=== PATIENT | female | born 1955 | race Caucasian/White ===

== ENCOUNTER → 2018-05-03 16:46 | Outpatient (CLI) | payer BC | END | disposition home or self-care (01) | LOC: D.MAMMO 04-20 15:00 | DX: Z12.31 Encounter for screening mammogram for malignant neoplasm of breast (principal) ==

== ENCOUNTER 2018-06-15 19:00 | Outpatient (CLI) | payer BC | END 2018-06-15 20:00 | disposition home or self-care (01) | LOC: D.MAMMO 19:00 | DX: R92.8 Other abnormal and inconclusive findings on diagnostic imaging of breast (principal) ==

== ENCOUNTER → 2019-06-05 14:00 | Outpatient (CLI) | payer MEDICARE, BC | END | disposition home or self-care (01) | LOC: D.MAMMO 09:00 | PROVIDERS: ATTEND Nurse Practitioner | DX: R92.8 Other abnormal and inconclusive findings on diagnostic imaging of breast (principal) ==

== ENCOUNTER → 2019-06-19 14:59 | Outpatient (CLI) | payer MEDICARE, BC ==
[~2019-06-19 14:59] MED LIST: METOPROLOL TART50 MG PO; VITAMIN D2000 UNIT PO
[2019-08-14 06:13] VITALS: BMI 30.9
== END | disposition home or self-care (01) ==
LOC: D.RAD 14:59
PROVIDERS: ATTEND Nurse Practitioner
DX: M25.562 Pain in left knee (principal)

== ENCOUNTER → 2019-07-09 09:26 | Outpatient (CLI) | payer MEDICARE, BC ==
[2019-08-14 06:13] VITALS: BMI 30.9
== END | disposition home or self-care (01) ==
LOC: D.MRI 09:26
PROVIDERS: ATTEND Orthopaedic Surgery
DX: S82.242A Displaced spiral fracture of shaft of left tibia, initial encounter for closed fracture (principal)

== ENCOUNTER 2019-08-14 05:30 | Day surgery (SDC) | payer MEDICARE, BC ==
[2019-08-09 10:22] LABS: BASOPHILS 0.4 % (0-2); EOSINOPHILS 1.7 % (0-7); HEMATOCRIT 43.7 % (36.0-48.0); HEMOGLOBIN 15.4 g/dL (12-16); IMMATURE GRANULOCYTES 0.1 % (0-5); LYMPHOCYTES 30.8 % (15-50); MCH 33.4 pg (26.0-34.0); MCHC 35.2 g/dL (31.0-37.0); MCV 94.8 fL (80.0-100.0); MONOCYTES 8.8 % (2-11); NEUTROPHILS 58.2 % (40-80); PLATELET COUNT 225 10x3/uL (130-400); RBC 4.61 10x6/uL (4.00-5.40); RDW 12.6 % (11.5-14.5); WBC 8.3 10x3/uL (4.8-10.8)
[2019-08-09 10:31] LABS: CALC OSMOLALITY 283 mosm/kg (275-300); CALCIUM 8.8 mg/dL (8.5-10.1); CARBON DIOXIDE 29.7 mmol/L (21.0-32.0); CHLORIDE - SERUM 107 mmol/L (98-107); CREATININE - SERUM 0.7 mg/dL (0.6-1.3); GLUCOSE 102 mg/dL (74-106); POTASSIUM - SERUM 4.2 mmol/L (3.5-5.1); SODIUM 143 mmol/L (136-145); UREA NITROGEN 11 mg/dL (7-18); eGFR NON AFRICAN AMERICAN 89 mL/min (90-120)
[~2019-08-14] VITALS: Ht 162.6 cm; Wt 81.6 kg
[~2019-08-14 05:30] MED LIST changes: -VITAMIN D2000 UNIT PO
[2019-08-14] MEDS ORDERED: VITAMIN D2000 UNIT PO (06:12)
[2019-08-14 06:13] VITALS: BP 147/54; Ht 162.6 cm; Wt 81.6 kg
== END 2019-08-14 10:53 | disposition home or self-care (01) ==
LOC: D.OPS 05:30 → D.PAN 07:30 → D.OPS 07:30
PROVIDERS: ATTEND Orthopaedic Surgery
DX: S83.282A Other tear of lateral meniscus, current injury, left knee, initial encounter (principal); S83.242A Other tear of medial meniscus, current injury, left knee, initial encounter; X58.XXXA Exposure to other specified factors, initial encounter; M65.862 Other synovitis and tenosynovitis, left lower leg; M94.262 Chondromalacia, left knee

== ENCOUNTER → 2020-02-12 19:05 | Outpatient (CLI) | payer MEDICARE, BC ==
[2019-08-14 06:13] VITALS: BMI 30.9
[~2020-02-12 19:05] MED LIST changes: +VITAMIN D2000 UNIT PO
== END | disposition home or self-care (01) ==
LOC: D.MAMMO 14:30
PROVIDERS: ATTEND Nurse Practitioner
DX: R92.2 Inconclusive mammogram (principal)

== ENCOUNTER → 2020-04-21 16:47 | Outpatient (CLI) | payer MEDICARE, BC ==
[2019-08-14 06:13] VITALS: BMI 30.9
[2020-04-21 17:19] LABS: BASOPHILS 0.3 % (0-2); EOSINOPHILS 1.4 % (0-7); HEMATOCRIT 46.5 % (36.0-48.0); HEMOGLOBIN 15.5 g/dL (12-16); IMMATURE GRANULOCYTES 0.1 % (0-5); LYMPHOCYTES 25.3 % (15-50); MCH 32.6 pg (26.0-34.0); MCHC 33.3 g/dL (31.0-37.0); MCV 97.9 fL (80.0-100.0); MEAN PLATELET VOLUME 10.5 fL (7.4-10.4); MONOCYTES 8.8 % (2-11); NEUTROPHILS 64.1 % (40-80); RBC 4.75 10x6/uL (4.00-5.40); RDW 12.3 % (11.5-14.5); WBC 8.8 10x3/uL (4.8-10.8)
[2020-04-21 17:25] LABS: PLATELET COUNT 271 10x3/uL (130-400)
[2020-04-21 17:40] LABS: C-REACTIVE PROTEIN 1.4 mg/dL (0.0-0.9); URIC ACID 5.2 mg/dL (2.6-7.2)
[2020-04-21 18:32] LABS: ERYTHROCYTE SEDIMENTATION RATE 10 mm/hr (0-30)
[2020-04-22 13:10] LABS: ANA REFLEX - ANTICHROMATIN ABS <0.2 AI (0.0-0.9); ANA REFLEX - CENTROMERE B ABS <0.2 AI (0.0-0.9); ANA REFLEX - DBL STRANDED DNA 1 IU/mL (0-9); ANA REFLEX - DIRECT Positive (Negative); ANA REFLEX - JO-1 AB <0.2 AI (0.0-0.9); ANA REFLEX - RNP ANTIBODIES <0.2 AI (0.0-0.9); ANA REFLEX - SCL-70 0.2 AI (0.0-0.9); ANA REFLEX - SJOGRENS AB SSA 0.7 AI (0.0-0.9); ANA REFLEX - SJOGRENS AB SSB 4.3 AI (0.0-0.9); ANA REFLEX - SMITH AB <0.2 AI (0.0-0.9)
== END | disposition home or self-care (01) ==
LOC: D.LABREF 16:47
PROVIDERS: ATTEND Clinical Nurse Specialist Family Health
DX: M13.0 Polyarthritis, unspecified (principal)